=== PATIENT | female | born 1995 | race Caucasian/White ===

== ENCOUNTER → 2016-07-28 | Outpatient (CLI) | payer OTHER ==
--- NOTE | 2016-07-28 15:21 | DX ---
Left Knee, Four Views Indication: Fell on kneecap today. Pain. Technique: AP, oblique, lateral, and Merchant views. Comparison: None Findings: The normally mineralized bones are anatomically aligned. No fracture, joint space abnormali ty, or underlying bony lesion. The patella is normally aligned on the Merchant view. No effusion. Impression: Normal. No fracture or effusion.
== END ==
LOC: BMCIMAGING 14:45
PROVIDERS: ATTEND Family Medicine
DX: M25.562 Pain in left knee (principal)

== ENCOUNTER 2016-07-29 18:55 | Emergency (ER) | payer OTHER ==
[2016-07-29 19:32] LABS: COLOR YELLOW; LEUKOCYTE ESTERASE,URINE NEGATIVE (NEGATIVE); NITRITE,URINE NEGATIVE (NEGATIVE)
[2016-07-29 19:42] LABS: % IMMATURE GRANULYOCYTES 0.3 % (0.0-1.1); ABSOLUTE IMMATURE GRANULOCYTES 0.02 10^3/uL (0.00-0.10); ADD DIFF? NO; ADD MORPH? NO; ADD SCAN? NO; ATYPICAL LYMPHOCYTE FLAG 0 (0-99); FRAGMENT RBC FLAG 0 (0-99); HEMATOCRIT 41.2 % (38.0-47.0); HEMOGLOBIN 13.9 g/dL (12.6-16.3); LEFT SHIFT FLG 0 (0-99); LIPEMIA HEMOLYSIS FLAG 80 (0-99); MEAN CELL HEMOGLOBIN 29.1 pg (27.9-34.1); MEAN CELL HEMOGLOBIN CONCENTR. 33.7 g/dL (32.4-36.7); MEAN CELL VOLUME 86.4 fL (81.5-99.8); MEAN PLATELET VOLUME 9.4 fL (8.7-11.7); PLATELET CLUMPS FLAG 20 (0-99); PLATELET COUNT 271 10^3/uL (150-400); RED BLOOD CELL COUNT 4.77 10^6/uL (4.18-5.33); RED CELL DISTRIBUTION WIDTH 12.4 % (11.5-15.2)
[2016-07-29 19:58] LABS: ALANINE AMINOTRANSFERASE 31 IU/L (9-52); ALBUMIN 4.5 g/dL (3.5-5.0); ALKALINE PHOSPHATASE 80 IU/L (38-126); ANION GAP 11 mEq/L (8-16); ASPARTATE AMINOTRANSFERASE 32 IU/L (14-46); BILIRUBIN,TOTAL 0.5 mg/dL (0.1-1.4); BILIRUBIN-CONJUGATED 0.4 mg/dL (0.0-0.5); BILIRUBIN-UNCONJUGATED 0.1 mg/dL (0.0-1.1); CALCIUM 9.6 mg/dL (8.5-10.4); CARBON DIOXIDE 22 mEq/l (22-31); CHLORIDE 108 mEq/L (97-110); CREATININE 0.8 mg/dL (0.6-1.0); GLOMERULAR FILTRATION RATE > 60; GLUCOSE 83 mg/dL (70-100); POTASSIUM 4.3 mEq/L (3.5-5.2); SODIUM 141 mEq/L (134-144); TOTAL PROTEIN 7.7 g/dL (6.3-8.2)
[2016-07-29] MEDS ORDERED: MAALOX/LIDO/HYOSC GI COCKTAIL 55 ML BOTTLE PO ONE (20:12)
--- NOTE | 2016-07-29 20:21 | EDPHY ---
H & P Stated Complaint: Epigastric pain Time Seen by Provider: 07/29/16 19:14 HPI/ROS: CHIEF COMPLAINT: Epigastric pain HISTORY OF PRESENT ILLNESS: 21-year-old female presents emergency department complaining of epigastric pain that started last night after drinking alcohol. Patient states this morning this pain has continued. She reports it is worse after eating. She reports mild nausea, no vomiting. Patient recently saw a GI doctor last month in [place] and had an endoscopy and colonoscopy for chronic abdominal pain. Patient reports she started taking pantoprazole less than a week ago that was prescribed by this doctor. She is taking it with food, intermittently. Patient denies fevers, no diarrhea, no urinary frequency, urgency or dysuria. Pain is constant, burning in nature. REVIEW OF SYSTEMS: A comprehensive 10 point review of systems is otherwise negative aside from elements mentioned in the history of present illness. Source: Patient Exam Limitations: No limitations - Personal History LMP (Females 10-55): 1-7 Days Ago Current Tetanus/Diphtheria Vaccine: Yes Current Tetanus Diphtheria and Acellular Pertussis (TDAP): Yes - Medical/Surgical History Hx Asthma: Yes Hx Chronic Respiratory Disease: No Hx Diabetes: No Hx Cardiac Disease: No Hx Renal Disease: No Hx Cirrhosis: No Hx Alcoholism: No Hx HIV/AIDS: No Hx Splenectomy or Spleen Trauma: No Other PMH: ASTHMA - Social History Smoking Status: Never smoked - Physical Exam Exam: Physical Exam Gen: Alert and Oriented, NAD HEENT: PERRL, moist mucous membranes NECK: no meningismus CV: regular rate and regular rhythm PULM: CTAB, no wheezes ABDOMEN: soft, mild epigastric tenderness to palpation, BS present BACK: No CVA tenderness NEURO: Neurologically grossly intact EXTREMITIES: normal appearing SKIN: no rash or break in skin on exposed skin PSYCH: Flat affect. Constitutional: Initial Vital Signs Temperature (C) 36.9 C 07/29/16 19:00 Heart Rate 76 07/29/16 19:00 Respiratory Rate 13 07/29/16 19:00 Blood Pressure 112/78 07/29/16 19:00 O2 Sat (%) 97 07/29/16 19:00 O2 Delivery Mode Room Air Allergies/Adverse Reactions: No Known Allergies Allergy (Unverified 07/29/16 18:58) Home Medications: Medication Instructions Recorded IRON 07/29/16 Omeprazole [Prilosec 20 mg] 20 mg PO DAILY #7 capsule. 07/29/16 Pantoprazole Sodium 07/29/16 Medical Decision Making ED Course/Re-evaluation: IV established, CBC, chemistry panel, urinalysis, lipase and LFTs obtained along with a test. All lab studies are normal. Patient was given a GI cocktail which helped her pain significantly. She will be discharged home with a prescription for Prilosec to take in the morning 30 minutes before eating for 7 days and then start back on her pantoprazole. She has been given a cloth layer for follow-up. Patient is nontoxic appearing, vital signs are stable, no peritoneal signs on repeat abdominal exam. She is comfortable being discharged home. Differential Diagnosis: The differential diagnosis for the patient's abdominal pain included but was not limited to gastritis, acid reflex, pancreatitis, ovarian cyst, pelvic inflammatory disease, ovarian torsion, urinary tract infection, ectopic , cholecystitis, and appendicitis. - Data Points Laboratory Results: Laboratory Results 07/29/16 19:25 07/29/16 19:25 07/29/16 07/29/16 19:25 19:05 WBC 6.85 10^3/uL (3.80-9.50) RBC 4.77 10^6/uL (4.18-5.33) Hgb 13.9 g/dL (12.6-16.3) Hct 41.2 % (38.0-47.0) MCV 86.4 fL (81.5-99.8) MCH 29.1 pg (27.9-34.1) MCHC 33.7 g/dL (32.4-36.7) RDW 12.4 % (11.5-15.2) Plt Count 271 10^3/uL (150-400) MPV 9.4 fL (8.7-11.7) Neut % (Auto) 57.7 % (39.3-74.2) Lymph % (Auto) 32.6 % (15.0-45.0) [place] % (Auto) 7.2 % (4.5-13.0) Eos % (Auto) 1.6 % (0.6-7.6) Baso % (Auto) 0.6 % (0.3-1.7) Nucleat RBC Rel Count 0.0 % (0.0-0.2) Absolute Neuts (auto) 3.96 10^3/uL (1.70-6.50) Absolute Lymphs (auto) 2.23 10^3/uL (1.00-3.00) Absolute Monos (auto) 0.49 10^3/uL (0.30-0.80) Absolute Eos (auto) 0.11 10^3/uL (0.03-0.40) Absolute Basos (auto) 0.04 10^3/uL (0.02-0.10) Absolute Nucleated RBC 0.00 10^3/uL (0-0.01) Immature Gran % 0.3 % (0.0-1.1) Immature Gran # 0.02 10^3/uL (0.00-0.10) Sodium 141 mEq/L (134-144) Potassium 4.3 mEq/L (3.5-5.2) Chloride 108 mEq/L (97-110) Carbon Dioxide 22 mEq/l (22-31) Anion Gap 11 mEq/L (8-16) BUN 13 mg/dL (7-23) Creatinine 0.8 mg/dL (0.6-1.0) Estimated GFR > 60 Glucose 83 mg/dL (70-100) Calcium 9.6 mg/dL (8.5-10.4) Total Bilirubin 0.5 mg/dL (0.1-1.4) Conjugated Bilirubin 0.4 mg/dL (0.0-0.5) Unconjugated Bilirubin 0.1 mg/dL (0.0-1.1) AST 32 IU/L (14-46) ALT 31 IU/L (9-52) Alkaline Phosphatase 80 IU/L (38-126) Total Protein 7.7 g/dL (6.3-8.2) Albumin 4.5 g/dL (3.5-5.0) Lipase 76.0 IU/L (23-300) Beta HCG, Qual NEGATIVE Urine Color YELLOW Urine Appearance CLEAR Urine pH 6.0 (5.0-7.5) Ur Specific [place] 1.027 (1.002-1.030) Urine Protein NEGATIVE (NEGATIVE) Urine Ketones TRACE H (NEGATIVE) Urine Blood NEGATIVE (NEGATIVE) Urine Nitrate NEGATIVE (NEGATIVE) Urine Bilirubin NEGATIVE (NEGATIVE) Urine Urobilinogen NEGATIVE EU (0.2-1.0) Ur Leukocyte Esterase NEGATIVE (NEGATIVE) Ur Culture Indicated? NOT INDICATED (NI) Urine Glucose NEGATIVE (NEGATIVE) Medications Given: Discontinued Medications Miscellaneous Medication (Gi Cocktail) 55 ml PO EDNOW ONE Stop: 07/29/16 20:13 Last Admin: 07/29/16 20:33 Dose: 55 ml Departure - Departure Disposition: Home, Routine, Self-Care Clinical Impression: Epigastric pain Gastritis Qualifiers: Gastritis type: unspecified gastritis Chronicity: acute Gastritis bleeding: without bleeding Qualifier Code: (K29.00) Acute gastritis without bleeding Condition: Good Instructions: Gastritis (ED), Diet for Stomach Ulcers and Gastritis (ED) Additional Instructions: Take 20 mg Prilosec 30 minutes before eating in the mornings for 7 days. Do not take the pantoprazole during this time, start that after the 7 days of Prilosec. Eat a bland diet. Avoid spicy, greasy, acidic foods, eat small frequent meals, sleep with the head of your bed elevated. Follow up with the cloth layer for symptoms that are not improving. Return to the emergency department for fevers, increased pain, other questions or concerns. Referrals: Jaime Armendariz MD [Medical Doctor] - As per Instructions (Charting Clerk on-call) Prescriptions: Omeprazole [Prilosec 20 mg] 20 mg PO DAILY #7 capsule.
[2016-07-29 20:55] VITALS: BP 133/88; PULSE 80; RESP 16; TEMP 97.9; O2SAT 94
== END 2016-07-29 20:54 | disposition home or self-care (01) ==
DX: K29.00 Acute gastritis without bleeding (principal); J45.909 Unspecified asthma, uncomplicated

== ENCOUNTER 2016-08-21 16:43 | Emergency (ER) | payer OTHER ==
--- NOTE | 2016-08-21 16:44 | EDPHY ---
H & P Time Seen by Provider: 08/21/16 16:44 HPI/ROS: CHIEF COMPLAINT: Acute exacerbation of chronic abdominal pain HISTORY OF PRESENT ILLNESS: The patient presents to the ED with an acute exacerbation of chronic abdominal pain. The patient reports she has had mild intermittent abdominal pain for years. She has seen a locks inspector in the past. She does report having an unremarkable upper endoscopy and colonoscopy for evaluation of her symptoms. The patient was seen in the emergency department approximately 1 month ago and had normal laboratory studies. The patient has had intermittent follow up with her primary care provider at the [facility]. She continues to take a proton pump inhibitor. The patient has used ibuprofen sporadically. She denies melena or hematemesis. REVIEW OF SYSTEMS: A comprehensive 10 point review of systems is otherwise negative aside from elements mentioned in the history of present illness. Source: Patient Exam Limitations: No limitations - Medical/Surgical History Hx Asthma: Yes Hx Chronic Respiratory Disease: No Hx Diabetes: No Hx Cardiac Disease: No Hx Renal Disease: No Hx Cirrhosis: No Hx Alcoholism: No Hx HIV/AIDS: No Hx Splenectomy or Spleen Trauma: No Other PMH: ASTHMA - Social History Smoking Status: Never smoked - Physical Exam Exam: General Appearance: Alert, no distress Eyes: Pupils equal and round no pallor or injection ENT, Mouth: Mucous membranes moist Respiratory: There are no retractions, lungs are clear to auscultation Cardiovascular: Regular rate and rhythm Gastrointestinal: Tenderness to palpation noted in the epigastrium, normal bowel sounds, no peritoneal symptoms Neurological: A&O, normal motor function, normal sensory exam, normal cranial nerves Skin: Warm and dry, no rashes Musculoskeletal: Neck is supple nontender Extremities: symmetrical, full range of motion Constitutional: Initial Vital Signs Temperature (C) 36.7 C 08/21/16 16:45 Heart Rate 91 08/21/16 16:45 Respiratory Rate 18 08/21/16 16:45 Blood Pressure 127/79 H 08/21/16 16:45 O2 Sat (%) 100 08/21/16 16:45 O2 Delivery Mode Room Air Allergies/Adverse Reactions: No Known Allergies Allergy (Verified 08/21/16 16:45) Home Medications: Medication Instructions Recorded Dicyclomine [Bentyl 20 MG (*)] 20 mg PO QID PRN #30 tab 08/21/16 Omeprazole [Prilosec 20 mg] 20 mg PO 08/21/16 Medical Decision Making ED Course/Re-evaluation: ED COURSE: I reviewed the patient's ED workup from approximately 1 month ago for similar complaints. During that time she had a normal CBC, serum chemistries, lipase and liver function test. She had marked improvement of her symptoms after a GI cocktail. The patient was discharged home with a prescription for proton pump inhibitor. The patient presents to the ED today with recurrent acute epigastric pain. The patient continues to have normal liver function tests and lipase. There is no evidence of an acute blood loss. test is negative which excludes pulmonary embolism. At this point time I do not feel the patient is experiencing an intra-abdominal emergency. I do feel that she could continue to work with a locks inspector for evaluation of her symptoms. The patient will be discharged home with a prescription for Bentyl to take in addition to her proton pump inhibitor. The patient is referred to the locks inspector at the [facility] Dr. Guillaume Wasserman. Differential Diagnosis: Differential diagnosis considered includes pancreatitis, cholecystitis, chronic abdominal pain, gastritis - Data Points Laboratory Results: Laboratory Results 08/21/16 17:14 08/21/16 17:14 08/21/16 08/21/16 08/21/16 17:14 17:14 17:14 WBC 6.10 10^3/uL 10^3/uL (3.80-9.50) RBC 4.77 10^6/uL 10^6/uL (4.18-5.33) Hgb 14.0 g/dL g/dL (12.6-16.3) Hct 41.1 % % (38.0-47.0) MCV 86.2 fL fL (81.5-99.8) MCH 29.4 pg pg (27.9-34.1) MCHC 34.1 g/dL g/dL (32.4-36.7) RDW 12.2 % % (11.5-15.2) Plt Count 312 10^3/uL 10^3/uL (150-400) MPV 9.4 fL fL (8.7-11.7) Neut % (Auto) 46.0 % % (39.3-74.2) Lymph % (Auto) 44.3 % % (15.0-45.0) [place] % (Auto) 7.2 % % (4.5-13.0) Eos % (Auto) 1.5 % % (0.6-7.6) Baso % (Auto) 0.8 % % (0.3-1.7) Nucleat RBC Rel Count 0.0 % % (0.0-0.2) Absolute Neuts (auto) 2.81 10^3/uL 10^3/uL (1.70-6.50) Absolute Lymphs (auto) 2.70 10^3/uL 10^3/uL (1.00-3.00) Absolute Monos (auto) 0.44 10^3/uL 10^3/uL (0.30-0.80) Absolute Eos (auto) 0.09 10^3/uL 10^3/uL (0.03-0.40) Absolute Basos (auto) 0.05 10^3/uL 10^3/uL (0.02-0.10) Absolute Nucleated RBC 0.00 10^3/uL 10^3/uL (0-0.01) Immature Gran % 0.2 % % (0.0-1.1) Immature Gran # 0.01 10^3/uL 10^3/uL (0.00-0.10) Sodium 139 mEq/L mEq/L (134-144) Potassium 4.0 mEq/L mEq/L (3.5-5.2) Chloride 104 mEq/L mEq/L (97-110) Carbon Dioxide 22 mEq/l mEq/l (22-31) Anion Gap 13 mEq/L mEq/L (8-16) BUN 17 mg/dL mg/dL (7-23) Creatinine 0.8 mg/dL mg/dL (0.6-1.0) Estimated GFR > 60 Glucose 67 mg/dL L mg/dL (70-100) Calcium 9.6 mg/dL mg/dL (8.5-10.4) Total Bilirubin 0.5 mg/dL mg/dL (0.1-1.4) Conjugated Bilirubin 0.4 mg/dL mg/dL (0.0-0.5) Unconjugated Bilirubin 0.1 mg/dL mg/dL (0.0-1.1) AST 25 IU/L IU/L (14-46) ALT 23 IU/L IU/L (9-52) Alkaline Phosphatase 71 IU/L IU/L (38-126) Total Protein 7.9 g/dL g/dL (6.3-8.2) Albumin 4.5 g/dL g/dL (3.5-5.0) Lipase 102.0 IU/L IU/L (23-300) Beta HCG, Qual NEGATIVE Departure - Departure Disposition: Home, Routine, Self-Care Clinical Impression: Acute abdominal pain Condition: Good Instructions: Acute Abdominal Pain (ED) Additional Instructions: 1. Please take Bentyl as needed for pain in addition to your proton pump inhibitor. 2. Please schedule a follow-up appointment with a locks inspector you have been referred to for further evaluation of your abdominal pain. 3. I recommend avoiding caffeine, alcohol and spicy foods as these may be exacerbating her symptoms. Please avoid medications such as Aleve and ibuprofen. Referrals: Guillaume Wasserman MD [Medical Doctor] - As per Instructions
[2016-08-21 16:49] VITALS: RESP 18
[2016-08-21 17:28] LABS: % IMMATURE GRANULYOCYTES 0.2 % (0.0-1.1); ABSOLUTE IMMATURE GRANULOCYTES 0.01 10^3/uL (0.00-0.10); ADD DIFF? NO; ADD MORPH? NO; ADD SCAN? NO; ATYPICAL LYMPHOCYTE FLAG 30 (0-99); FRAGMENT RBC FLAG 10 (0-99); HEMATOCRIT 41.1 % (38.0-47.0); LEFT SHIFT FLG 0 (0-99); LIPEMIA HEMOLYSIS FLAG 90 (0-99); MEAN CELL HEMOGLOBIN 29.4 pg (27.9-34.1); MEAN CELL HEMOGLOBIN CONCENTR. 34.1 g/dL (32.4-36.7); MEAN CELL VOLUME 86.2 fL (81.5-99.8); MEAN PLATELET VOLUME 9.4 fL (8.7-11.7); PLATELET CLUMPS FLAG 0 (0-99); PLATELET COUNT 312 10^3/uL (150-400); RED BLOOD CELL COUNT 4.77 10^6/uL (4.18-5.33); RED CELL DISTRIBUTION WIDTH 12.2 % (11.5-15.2)
[2016-08-21 18:35] LABS: ALANINE AMINOTRANSFERASE 23 IU/L (9-52); ALBUMIN 4.5 g/dL (3.5-5.0); ALKALINE PHOSPHATASE 71 IU/L (38-126); ANION GAP 13 mEq/L (8-16); ASPARTATE AMINOTRANSFERASE 25 IU/L (14-46); BILIRUBIN,TOTAL 0.5 mg/dL (0.1-1.4); BILIRUBIN-CONJUGATED 0.4 mg/dL (0.0-0.5); BILIRUBIN-UNCONJUGATED 0.1 mg/dL (0.0-1.1); CALCIUM 9.6 mg/dL (8.5-10.4); CARBON DIOXIDE 22 mEq/l (22-31); CHLORIDE 104 mEq/L (97-110); CREATININE 0.8 mg/dL (0.6-1.0); GLOMERULAR FILTRATION RATE > 60; GLUCOSE 67 mg/dL (70-100); SODIUM 139 mEq/L (134-144); TOTAL PROTEIN 7.9 g/dL (6.3-8.2)
[2016-08-21 19:12] VITALS: BP 107/73; PULSE 74; TEMP 98.2; O2SAT 95
== END 2016-08-21 19:12 | disposition home or self-care (01) ==
DX: R10.0 Acute abdomen (principal); J45.909 Unspecified asthma, uncomplicated